=== PATIENT | male | born 1985 | race Caucasian/White ===

== ENCOUNTER 2017-03-24 08:24 | Emergency (ER) | payer OTHER ==
[2017-03-24 08:47] LABS: BASOPHIL COUNT 0.1 K/uL (0-0.1); EOSINOPHIL (%) 1.7 % (0-5); EOSINOPHIL COUNT 0.2 K/uL (0-0.3); HEMATOCRIT 45.7 % (38.0-50.0); IMMATURE GRANULOCYTE (%) 0.2 % (0.0-0.7); INSTRUMENT ABS NEUTROPHIL CT 5.8 K/uL; MCHC 32.8 G/DL (30.0-36.0); MCV 88.4 FL (86-99); MEAN PLAT.VOLUME 7.9 uM^3 (9.0-12.4); MONOCYTE (%) 6.9 % (3-12); MONOCYTE COUNT 0.6 K/uL (0-0.8); NEUTROPHIL (%) 67.5 % (45-76); NEUTROPHIL COUNT 5.8 K/uL (1.8-6.4); PLATELET COUNT 390 K/uL (156-360); RBC DIS.WIDTH-CV 13.2 % (11.8-14.6); RBC DIS.WIDTH-SD 42.9 % (39-53); RED BLOOD COUNT 5.17 M/uL (4.00-5.50); WHITE BLOOD COUNT 8.6 K/uL (4.1-10.2)
[2017-03-24 08:59] LABS: AMYLASE 71 IU/L (1-118); CHLORIDE 105 mEq/L (99-109); POTASSIUM 3.8 mEq/L (3.7-5.4); SODIUM 137 mEq/L (136-147)
[2017-03-24 09:00] LABS: GLUCOSE 105 mg/dL (70-99)
[2017-03-24 09:02] LABS: ANION GAP 7 MEQ/L (2-14)
[2017-03-24 09:04] LABS: SERUM ETHYL ALCOHOL < 10 mg/dL
[2017-03-24 09:05] LABS: UREA NITROGEN (BUN) 13 mg/dL (9-23)
[2017-03-24 09:07] LABS: LIPASE 37 U/L (1.0-51.0)
[2017-03-24 09:17] LABS: GFR ESTIMATE (CALCULATED) > 59 mL/min/
[2017-03-24] MEDS ORDERED: NAPROSYN500 MG PO (09:49)
== END 2017-03-24 10:32 | disposition home or self-care (01) ==
LOC: TRA 08:24
PROVIDERS: Nurse Practitioner Family
DX: S16.1XXA Strain of muscle, fascia and tendon at neck level, initial encounter (principal); M25.561 Pain in right knee; V43.52XA Car driver injured in collision with other type car in traffic accident, initial encounter; Y92.411 Interstate highway as the place of occurrence of the external cause; F17.200 Nicotine dependence, unspecified, uncomplicated
CPT/HCPCS: 72040; 73564; 80048; 81003; 82150; 83690; 85025; 86900; 86901; 99281; 99284; G0480